=== PATIENT | female | born 1930 | race Caucasian/White ===

== ENCOUNTER 2020-11-17 12:01 | Emergency (ER) | payer MEDICARE ==
[~2020-11-17] VITALS: Ht 157.5 cm; Wt 57.6 kg
--- NOTE | 2020-11-17 12:12 | NUR ---
DR Meza at the bedside for MSE.
--- NOTE | 2020-11-17 12:34 | NUR ---
Spoke to Pt's sonNolberto per Pt's request.
--- NOTE | 2020-11-17 12:47 | NUR ---
LAKISHA speaking to ptPrudencio
[2020-11-17 13:15] VITALS: BP 142/70
--- NOTE | 2020-11-17 13:16 | NUR ---
Patient discharged to home in stable condition. Written and verbal after care instructions given. Patient and Pt's son(Nolberto) verbalize understanding of instructions. Stressed follow up or return to ER for worsening s/s. Pt left ER accompained by the son.
== END 2020-11-17 13:23 | disposition home or self-care (01) ==
LOC: ER 12:01
DX: S20.214A Contusion of middle front wall of thorax, initial encounter (principal); V49.88XA Car occupant (driver) (passenger) injured in other specified transport accidents, initial encounter; W22.11XA Striking against or struck by driver side automobile airbag, initial encounter; Y92.481 Parking lot as the place of occurrence of the external cause; I44.0 Atrioventricular block, first degree
CPT/HCPCS: 71045; A4663